=== PATIENT | male | born 1995 | race American Indian/Alaskan Native ===

== ENCOUNTER 2021-11-19 14:54 | Emergency (ER) | payer SELFPAY ==
[2021-11-19] MEDS ORDERED: IBUPROFEN 400 MG TAB PO ONE (15:42)
--- NOTE | 2021-11-19 15:47 | Emergency Department Report ---
ED General Adult HPI - General Chief complaint: Pain General Stated complaint: leg pain Time Seen by Provider: 11/19/21 15:33 Source: patient, EMS ( EMS documentation not available at time of chart dictation ) Mode of arrival: Ambulatory Limitations: No Limitations - History of Present Illness Initial comments: The patient was evaluated in the emergency department for symptoms described in the history of present illness. He/she was evaluated in the context of the global COVID-19 pandemic, which necessitated consideration that the patient might be at risk for infection with the virus that causes COVID-19. Institutional protocols and algorithms that pertain to the evaluation of patients at risk for COVID-19 are in a state of rapid change based on information released by regulatory bodies including the CDC and federal and state organizations. These policies and algorithms were followed during the patient's care in the emergency department. Please note that these policies, procedures and recommendations changed on a rapid basis. The patient is a 26-year-old gentleman presenting to the ER with a complaint of lower extremity cramping. He indicates that he is undomiciled. Earlier on this morning, he was sitting in the ER waiting room, although not as a patient. He was escorted off the premises, and subsequently called 911. The patient denies homicidality and suicidality. He denies access to guns or firearms. He denies hallucinations. He also denies wanting to overdose. He denies travel, surgery, immobilization, recent operative intervention, DVT/PE risk factors. He denies additional pain besides his bilateral lower extremities and cramping. Patient is also asking for "mental health evaluation", for his "anxiety." He also asks for resources for local psychiatric facilities Location: left, right, lower extremity Quality: aching Consistency: constant Improves with: movement, rest - Related Data Allergies Allergy/AdvReac Type Severity Reaction Status Date / Time No Known Allergies Allergy Verified 11/19/21 17:57 ED Review of Systems ROS: Stated complaint: ANKLE PAIN Other details as noted in HPI Constitutional: denies: fever Eyes: denies: eye discharge ENT: denies: epistaxis Respiratory: denies: cough Cardiovascular: denies: chest pain Gastrointestinal: denies: abdominal pain Musculoskeletal: arthralgia, myalgia Psychiatric: anxiety. denies: auditory hallucinations, visual hallucinations, homicidal thoughts, suicidal thoughts ED Physical Exam - General Limitations: No Limitations General appearance: alert, anxious - Head Head exam: Present: atraumatic, normocephalic - Eye Eye exam: Present: normal appearance, EOMI. Absent: nystagmus - ENT ENT exam: Present: normal exam, normal orophraynx, mucous membranes moist, normal external ear exam - Neck Neck exam: Present: normal inspection, full ROM. Absent: tenderness, meningismus - Respiratory Respiratory exam: Present: normal lung sounds bilaterally. Absent: respiratory distress, wheezes, rales, rhonchi, stridor, decreased breath sounds - Cardiovascular Cardiovascular Exam: Present: regular rate, normal rhythm, normal heart sounds. Absent: bradycardia, tachycardia, irregular rhythm, systolic murmur, diastolic murmur, rubs, gallop - GI/Abdominal GI/Abdominal exam: Present: soft. Absent: distended, tenderness, guarding, rebound, rigid, pulsatile mass - Rectal Rectal exam: Present: deferred - Extremities Exam Extremities exam: Present: normal inspection, full ROM (2+ pulses noted in the bilateral upper and lower extremities. There is no leg bony tenderness. The muscular compartments are soft. The pelvis is stable), pedal edema (There is 1+ edema in the bilateral lower extremities. There is no palpable cord. There is a negative Homans' sign. The muscular compartments are soft.), other (There is minimal gastrocnemius tenderness. There is no pain with passive range of motion of the great toe, ankle, or toes. The muscular compartments are soft) - Back Exam Back exam: Present: normal inspection, full ROM. Absent: tenderness, CVA tenderness (R), CVA tenderness (L), paraspinal tenderness, vertebral tenderness - Neurological Exam Neurological exam: Present: alert, oriented X3, normal gait, other (No facial droop. Tongue midline. Extraocular movements intact bilaterally. Facial sensation intact to light touch in V1, V2, V3 distribution bilaterally. 5 and a 5 strength in 4 extremities. Sensation intact to light touch in 4 extremities.). Absent: motor sensory deficit - Psychiatric Psychiatric exam: Present: anxious. Absent: homicidal ideation, suicidal ideation - Skin Skin exam: Present: warm, dry, intact, normal color. Absent: rash ED Course Vital Signs 11/19/21 11/19/21 15:26 17:54 Temperature 98.3 F Pulse Rate 94 Respiratory 18 Rate Blood Pressure 125/71 O2 Sat by Pulse 99 98 Oximetry - Reevaluation(s) Reevaluation #1: 11/19/21 16:17 The patient is now stating that he was suicidal. He is also asking when he can talk to someone about "demons." I suspect that this patient is malingering for the purposes of secondary gain, food, mcfp However, I will place him on a 1013, and order appropriate labs for psychiatric clearance. In addition, nursing team is instructed to take this patient to the decontamination room, and wash him off/decontaminate him before introduction to the psychiatric population 11/19/21 19:03 Laboratory studies unremarkable. Elevated CK reviewed and appreciated. This will decrease with rest and oral hydration. Muscular compartments are supple. Renal function within normal limits. TSH reviewed and appreciated. Free T4 added. Urinalysis and urine drug screen pending 11/19/21 21:02 Elevated TSH is reviewed and appreciated. Free T4 within normal limits. Urinalysis/urine drug screen/Covid swab pending. At this point in time, the patient does not appear to have an emergent medical contraindication at this time which would preclude psychiatric admission, ev aluation, consultation and placement. The ER will follow along as the patient provides a urine sample ED Medical Decision Making - Lab Data Result diagrams: 11/19/21 17:36 11/19/21 17:36 Vital Signs 11/19/21 15:26 Temperature 98.3 F Pulse Rate 94 Respiratory 18 Rate Blood Pressure 125/71 O2 Sat by Pulse 99 Oximetry Lab Results 11/19/21 11/19/21 11/19/21 Range/Units 17:36 17:36 17:36 WBC 9.0 (4.5-11.0) K/mm3 RBC 3.95 (3.65-5.03) M/mm3 Hgb 12.3 (11.8-15.2) gm/dl Hct 37.0 (35.5-45.6) % MCV 94 (84-94) fl MCH 31 (28-32) pg MCHC 33 (32-34) % RDW 13.6 (13.2-15.2) % Plt Count 219 (140-440) K/mm3 Sodium (137-145) mmol/L Potassium (3.6-5.0) mmol/L Chloride (98-107) mmol/L Carbon Dioxide (22-30) mmol/L Anion Gap mmol/L BUN (9-20) mg/dL Creatinine (0.8-1.3) mg/dL Estimated GFR ml/min BUN/Creatinine Ratio % Glucose (75-100) mg/dL Calcium (8.4-10.2) mg/dL Total Bilirubin (0.1-1.2) mg/dL AST (5-40) units/L ALT (7-56) units/L Alkaline Phosphatase (35-129) units/L Total Creatine Kinase (55-170) units/L Total Protein (6.3-8.2) g/dL Albumin (3.9-5) g/dL Albumin/Globulin Ratio % TSH (0.270-4.200) mlU/mL Salicylates < 0.3 L (2.8-20.0) mg/dL Acetaminophen 5.0 L (10.0-30.0) ug/mL Plasma/Serum Alcohol (0-0.07) % 11/19/21 11/19/21 11/19/21 Range/Units 17:36 17:36 17:36 WBC (4.5-11.0) K/mm3 RBC (3.65-5.03) M/mm3 Hgb (11.8-15.2) gm/dl Hct (35.5-45.6) % MCV (84-94) fl MCH (28-32) pg MCHC (32-34) % RDW (13.2-15.2) % Plt Count (140-440) K/mm3 Sodium 140 (137-145) mmol/L Potassium 3.7 (3.6-5.0) mmol/L Chloride 103.3 (98-107) mmol/L Carbon Dioxide 25 (22-30) mmol/L Anion Gap 15 mmol/L BUN 20 (9-20) mg/dL Creatinine 0.9 (0.8-1.3) mg/dL Estimated GFR 101 ml/min BUN/Creatinine Ratio 22 % Glucose 119 H (75-100) mg/dL Calcium 8.9 (8.4-10.2) mg/dL Total Bilirubin 0.60 (0.1-1.2) mg/dL AST 43 H (5-40) units/L ALT 37 (7-56) units/L Alkaline Phosphatase 68 (35-129) units/L Total Creatine Kinase 1719 H (55-170) units/L Total Protein 6.9 (6.3-8.2) g/dL Albumin 4.1 (3.9-5) g/dL Albumin/Globulin Ratio 1.5 % TSH 7.560 H (0.270-4.200) mlU/mL Salicylates (2.8-20.0) mg/dL Acetaminophen (10.0-30.0) ug/mL Plasma/Serum Alcohol < 0.01 (0-0.07) % - Medical Decision Making Differential diagnosis, including the not limited to: Encounter for behavioral health screening examination, encounter for mental health screening examination, encounter for medical screening examination, shinsplints, sprain, strain, overuse syndrome, homelessness Assessment and plan: 26-year-old gentleman who appears to be undomiciled, who is awake, alert, and oriented x3, who is clinically sober, who is not homicidal or suicidal, and who exhibits decision-making capacity, who does not meet criteria for 1013 hold or involuntary confinement, presenting with a number of nonemergent complaints. Patient may follow-up with an outpatient mental health professional or psychiatric facility for further evaluation of his anxiety which does not appear to be incapacitating at this time. Lower extremity swelling cramping likely secondary to shinsplints, excessive ambulation, with a possible component of mild malnutrition. He is not currently tachycardic, tachypneic or hypoxic, he denies DVT and pul monary embolism risk factors, he is low risk by Wells criteria for thromboembolic disease and he is PERC negative. He is neurovascularly intact with soft compartments, without pain with passive range of motion, therefore, compartment syndrome is very unlikely. Critical care attestation.: If time is entered above; I have spent that time in minutes in the direct care of this critically ill patient, excluding procedure time. ED Disposition Clinical Impression: Encounter for behavioral health screening, Encounter for medical screening examination, Lower extremity pain Disposition: [address] [place] [address] Is pt being admited?: No Does the pt Need Aspirin: No Condition: Good Additional Instructions: Patient may alternate ice packs and heat packs as needed for physical pain. He may take [id number] ibuprofen and/or acetaminophen as needed for physical pain. Recommend that patient obtain footwear that has good arch support. Patient may follow-up with an outpatient primary care doctor or mental health specialist within the next week. Please return to the emergency room right away with new pain, worsened pain, migration of pain, projectile vomiting, change in mental status, confusion, inability tolerate liquid feeds, new, worsened or different symptoms not present on the initial emergency room evaluation Please follow-up with outpatient resources that have been provided to the p atient Patient may present himself to [place] psychiatric facility if he would like to have an additional/expanded evaluation for his history of anxiety [facility] in [place], [place] COVID-19 info: cdc.gov Get online care: [email or web address] Address: [address] [place] [address] , [place] [address] [address]errals: [facility] [Outside] - 3-[address] [facility] [Outside] - 3-5 Days
[2021-11-19] MEDS: HALOPERIDOL LACTATE 5 MG/1 ML INJ IM PRN (17:15)
[2021-11-19] MEDS: LORazepam 2 MG/ML VIAL IM PRN (17:15)
[2021-11-19 17:49] LABS: Hemoglobin 12.3 gm/dl (11.8-15.2); Mean Corpuscular HGB Conc 33 % (32-34); Mean Corpuscular Volume 94 fl (84-94); Platelet Count 219 K/mm3 (140-440); Red Blood Count 3.95 M/mm3 (3.65-5.03); Red Cell Distribution Width 13.6 % (13.2-15.2)
[2021-11-19 18:17] LABS: Albumin 4.1 g/dL (3.9-5); Calcium 8.9 mg/dL (8.4-10.2)
[2021-11-20] MEDS: LORazepam 2 MG/ML VIAL IM PRN ×2 (09:04→09:05)
[2021-11-20] MEDS: HALOPERIDOL LACTATE 5 MG/1 ML INJ IM PRN (09:05)
--- NOTE | 2021-11-20 09:07 | Progress Note ---
Subjective - Reason for Consult Consult date: 11/20/21 Reason for consult: SI - Chief Complaint Chief complaint: The patient was seen today. He is a 26y/o male who presents to the ER for leg cramps. During the evaluation he is avoidant. It is difficult to obtain any information from him. I attempted once and he would barely talk. I later came back after speaking with another patient. I have to ask him questions several times. His answers are vague. Some questions he would not answer. He is irritable. I ask him his name, he doesn't reference it but spells it out to me. He endorses suicidal thoughts with no plan. When asking the patient why was he suicidal, he replies "I don't know." He denies any past psych history or ever being on any medications. I ask the patient if he have family or any social support. He replies "yes." When asking who were they, he just sits up and rakes his hair back constantly. He says he lives alone. He denies any illicit drug use, alcohol or nicotine. PAST PSYCHIATRIC HISTORY: Diagnoses: Denies Suicide attempts or Self-harm behavior: Denies Prior psychiatric hospitalizations: Denies Substance Abuse history: Denies Previous psychiatric medications tried: Denies Outpatient treatment: Denies PAST MEDICAL HISTORY: None reported Family Psychiatric History: None reported or documented SOCIAL HISTORY Marital Status: would not answer Living Arrangements: states alone Employment Status: would not answer Access to guns/weapons: Denies Education: History of Abuse: Denies Legal History: Denies REVIEW OF SYSTEMS Constitutional: Negative for weight loss ENT: Negative for stridor Respiratory: Negative for cough or hemoptysis All other systems reviewed and are negative MENTAL STATUS EXAMINATION Unable to assess adequately Assessment (1) Major Depressive Disorder Treatment Plan 1013 Olanzapine 5mg po daily Trazodone 50mg po qhs Medical: Per primary Disposition: Recommend acute psychiatric inpatient treatment Will follow. Thanks Case staffed with Dr. Greene Mental Status Exam - Vital signs Last Vital Signs Temp 98.1 F 11/19/21 22:26 Pulse 90 11/19/21 22:26 Resp 18 11/19/21 22:26 BP 120/60 11/19/21 22:26 Pulse Ox 98 11/19/21 22:26
--- NOTE | 2021-11-20 16:27 | Event Note ---
Date: 11/20/21 No overnight issues. Vital signs stable. Labs reviewed and is unremarkable. Patient has been evaluated by psychiatric team and waiting for inpatient psychiatric admission.
[2021-11-20 17:21] LABS: Amphetamine Screen,Urine Negative; Benzodiazepines Screen,Urine Negative; Cannabinoid Screen,Urine Negative; Cocaine Screen,Urine Negative; Methadone Screen,Urine Negative; Opiate Screen,Urine Negative
[2021-11-20 17:24] LABS: Mucus,Urine FEW /HPF; WBC,Urine < 1.0 /HPF (0.0-6.0)
[2021-11-20 18:02] LABS: Bilirubin,Urine Negative (Negative); Blood,Urine Negative (Negative); Color,Urine Yellow (Yellow); Protein,Urine <15 mg/dL mg/dL (Negative)
[2021-11-20] MEDS ORDERED: traZODone 50 MG TAB PO SCH (22:00)
--- NOTE | 2021-11-21 12:04 | Progress Note ---
Subjective - Reason for Consult Consult date: 11/21/21 Reason for consult: SI - Chief Complaint Chief complaint: The patient was seen today. He is more talkative than yesterday. The patient verbalizes feeling "fine today." He says he slept good and his appetite is good. The patient is asking for a "pain pill for his legs." He denies SI/HI or hallucinations of any kind. Asked the patient why he refused his vital signs to be taken, he replies "I've been taking the meds but I don't need the vitals checked." He says "anyway, I feel fine today." The patient is asking for coffee and to use the phone. REVIEW OF SYSTEMS Constitutional: Negative for weight loss ENT: Negative for stridor Respiratory: Negative for cough or hemoptysis All other systems reviewed and are negative MENTAL STATUS EXAMINATION General Appearance and Behavior: Age appropriate, good hygiene, wearing appropriate clothes. calm, cooperative Cooperation: Cooperative Psychomotor Behavior: Psychomotor normal Mood: fine Affect and affective range: congruent with stated mood Thought Process: goal directed Thought Content: None Speech: Normal tone and pace Suicidal Ideation: Denies Homicidal Ideation: Denies Hallucinations: Denies Delusions: None elicited Impulse Control: Limited Insight and Judgment: limited insight and fair judgment Memory: Limited Attention: attentive Orientation: a/o x 3 Assessment (1) Major Depressive Disorder Treatment Plan d/c 1013 Olanzapine 5mg po daily Trazodone 50mg po qhs Medical: Per primary Disposition: Do not recommend acute psychiatric inpatient treatment. The patient understands that if SI/HI or any fear of endangerment are to arise he is to seek immediate assistance. The private duty aide to give the patient all necessary resources, and further discuss safety plan. The patient to follow up with outpatient psych in 7 to 14 days upon discharge from ER Will sign off. Thanks Case staffed with Dr. Greene Mental Status Exam - Vital signs Last Vital Signs Temp 98.1 F 11/19/21 22:26 Pulse 85 11/20/21 11:11 Resp 14 11/20/21 11:11 BP 106/60 11/20/21 11:11 Pulse Ox 99 11/20/21 11:11
--- NOTE | 2021-11-21 13:52 | Emergency Department Report ---
Blank Doc - Documentation Documentation: 26-year-old male evaluated by mental health with recommendation to discontinue 1013. patient be discharged with meds as prescribed by psych. Patient refused vital signs
[2021-11-21 15:49] VITALS: BP 120/87
== END 2021-11-21 15:51 | disposition home or self-care (01) ==
LOC: ED 14:54 → EDSEX 14:54 → ED 11-21 15:51
DX: M79.604 Pain in right leg (principal); M79.605 Pain in left leg; Z13.30 Encounter for screening examination for mental health and behavioral disorders, unspecified; Z20.822 Contact with and (suspected) exposure to COVID-19; Z79.899 Other long term (current) drug therapy
CPT/HCPCS: 36415; 80053; 80307; 81001; 82550; 84439; 84443; 85027; 96372; 99285; J1630; J2060; U0003; 80320; G0480

== ENCOUNTER 2021-11-22 02:51 | Emergency (ER) | payer SELFPAY ==
[2021-11-22] MEDS ORDERED: diphenhydrAMINE 25 MG CAP PO ONE (05:23)
--- NOTE | 2021-11-22 05:30 | Emergency Department Report ---
HPI - General Chief Complaint: Psych Time Seen by Provider: 11/22/21 04:11 - [facility] HPI: Room 12 The patient is a 26-year-old male present with a chief complaint of suicidal ideation. Patient states he is felt suicidal for "a while." Patient also admits to auditory hallucinations. When asked what the voices are saying the patient replies "nothing really important." Patient denies making any attempts at harming himself or having an active plan. ED Past Medical Hx - Past Medical History Hx Psychiatric Treatment: Yes (Anxiety) - Surgical History Past Surgical History?: No - Family History Family history: no significant - Social History Smoking Status: Never Smoker Substance Use Type: None (Denies illicit drug use) - Medications Home Medications: Home Medications Medication Instructions Recorded Confirmed Last Taken Type OLANZapine [Olanzapine] 5 mg PO DAILY #30 11/21/21 Unknown Rx traZODone [Desyrel] 50 mg PO QHS #30 tab 11/21/21 Unknown Rx ED Review of Systems ROS: Stated complaint: MH Other details as noted in HPI Constitutional: no symptoms reported Eyes: denies: eye pain ENT: denies: throat pain Respiratory: no symptoms reported Cardiovascular: denies: chest pain Endocrine: no symptoms reported Gastrointestinal: denies: abdominal pain Genitourinary: denies: dysuria Musculoskeletal: denies: back pain Skin: rash, pruritus Neurological: denies: headache Psychiatric: auditory hallucinations, suicidal thoughts Physical Exam - Physical Exam Vital Signs: Vital Signs 11/22/21 03:06 Temperature 98.4 F Pulse Rate 82 Respiratory 16 Rate Blood Pressure 138/80 O2 Sat by Pulse 99 Oximetry Physical Exam: GENERAL: The patient is well-developed well-nourished male lying on stretcher not appearing to be in acute distress. [] HEENT: Normocephalic. Atraumatic. Extraocular motions are intact. Patient has moist mucous membranes. NECK: Supple. Trachea midline CHEST/LUNGS: Clear to auscultation. There is no respiratory distress noted. HEART/CARDIOVASCULAR: Regular. There is no tachycardia. There is no gallop rub or murmur. ABDOMEN: Abdomen is soft, nontender. Patient has normal bowel sounds. There is no abdominal distention. SKIN: There is no diaphoresis. NEURO: The patient is awake, alert, and oriented. The patient is cooperative. The patient has no focal neurologic deficits. The patient has normal speech MUSCULOSKELETAL: There is no evidence of acute injury. ED Course Vital Signs 11/22/21 03:06 Temperature 98.4 F Pulse Rate 82 Respiratory 16 Rate Blood Pressure 138/80 O2 Sat by Pulse 99 Oximetry ED Medical Decision Making - Lab Data Result diagrams: 11/22/21 06:10 11/22/21 06:10 - Differential Diagnosis Suicidal ideation Critical care attestation.: If time is entered above; I have spent that time in minutes in the direct care of this critically ill patient, excluding procedure time. ED Disposition Clinical Impression: Encounter for behavioral health screening, Encounter for medical screening examination Disposition: HOME / SELF CARE / HOMELESS Is pt being admited?: No Does the pt Need Aspirin: No Condition: Good Additional Instructions: Please follow-up with the outpatient resources that have been provided to the patient. Please avoid consumption of tobacco, alcohol, drugs and smoke products. Please follow-up with an outpatient primary care provider within the next month. Please follow-up with an outpatient psychiatrist within the next week. Please return to the emergency room right away with new pain, worsened pain, migration of pain, projectile vomiting, change in mental status, confusion, inability tolerate liquid feeds, new, worsened or different symptoms not present on the initial emergency room evaluation Referrals: [facility] [Outside] - 3-5 Days [facility] [Outside] - 3-5 Days
[2021-11-22 06:25] LABS: Hematocrit 35.7 % (35.5-45.6); Mean Corpuscular HGB Conc 34 % (32-34); Mean Corpuscular Volume 95 fl (84-94); Platelet Count 237 K/mm3 (140-440); Red Blood Count 3.77 M/mm3 (3.65-5.03); Red Cell Distribution Width 13.5 % (13.2-15.2)
[2021-11-22 06:36] LABS: Basophils % (Auto) 0.4 % (0.0-1.8); Eosinophils # (Auto) 0.1 K/mm3 (0.0-0.4); Eosinophils % (Auto) 2.4 % (0.0-4.3); Lymphocytes # (Auto) 0.7 K/mm3 (1.2-5.4); Lymphocytes % (Auto) 16.7 % (13.4-35.0); Monocytes # (Auto) 0.4 K/mm3 (0.0-0.8); Monocytes % (Auto) 9.2 % (0.0-7.3)
[2021-11-22 06:53] LABS: Alanine Aminotransferase 23 units/L (7-56); Albumin 3.8 g/dL (3.9-5); BUN/Creatinine Ratio 19; Blood Urea Nitrogen 17 mg/dL (9-20); Calcium 8.4 mg/dL (8.4-10.2); Hemolysis Index 8
--- NOTE | 2021-11-22 07:09 | Event Note ---
Date: 11/22/21 Patient is seen and examined. He is cooperative and resting on the chair and in no acute distress. The patient was cleared by the psychiatry team yesterday, and discharged from the emergency room. The care team endorses that he is cooperative, and not belligerent or combative. I again suspect that this patient is presenting for the purposes of malingering, housing, mcc and secondary gain. Please send this patient on a hold/1013 will reinforce maladaptive behavior, and encouraged the patient to present to the emergency room to seek mcc and food when faced with difficult situations. At this point time, he does not appear to have an immediate medical contraindication to psychiatric admission, evaluation, consultation and john cement. We are awaiting mental health evaluation. Vital Signs 11/22/21 03:06 Temperature 98.4 F Pulse Rate 82 Respiratory 16 Rate Blood Pressure 138/80 O2 Sat by Pulse 99 Oximetry Lab Results 11/22/21 11/22/21 11/22/21 Range/Units 06:10 06:10 06:10 WBC 4.2 L (4.5-11.0) K/mm3 RBC 3.77 (3.65-5.03) M/mm3 Hgb 12.0 (11.8-15.2) gm/dl Hct 35.7 (35.5-45.6) % MCV 95 H (84-94) fl MCH 32 (28-32) pg MCHC 34 (32-34) % RDW 13.5 (13.2-15.2) % Plt Count 237 (140-440) K/mm3 Lymph % (Auto) 16.7 (13.4-35.0) % [place] % (Auto) 9.2 H (0.0-7.3) % Eos % (Auto) 2.4 (0.0-4.3) % Baso % (Auto) 0.4 (0.0-1.8) % Lymph # (Auto) 0.7 L (1.2-5.4) K/mm3 [place] # (Auto) 0.4 (0.0-0.8) K/mm3 Eos # (Auto) 0.1 (0.0-0.4) K/mm3 Baso # (Auto) 0.0 (0.0-0.1) K/mm3 Seg Neutrophils % 71.3 H (40.0-70.0) % Seg Neutrophils # 3.1 (1.8-7.7) K/mm3 Sodium 148 H D (137-145) mmol/L Potassium 3.6 (3.6-5.0) mmol/L Chloride 111.4 H (98-107) mmol/L Carbon Dioxide 26 (22-30) mmol/L Anion Gap 14 mmol/L BUN 17 (9-20) mg/dL Creatinine 0.9 (0.8-1.3) mg/dL Estimated GFR > 60 ml/min BUN/Creatinine Ratio 19 % Glucose 120 H (75-100) mg/dL Calcium 8.4 (8.4-10.2) mg/dL Total Bilirubin 0.20 (0.1-1.2) mg/dL AST 33 (5-40) units/L ALT 23 (7-56) units/L Alkaline Phosphatase 70 (35-129) units/L Total Protein 6.5 (6.3-8.2) g/dL Albumin 3.8 L (3.9-5) g/dL Albumin/Globulin Ratio 1.4 % Salicylates < 0.3 L (2.8-20.0) mg/dL Acetaminophen (10.0-30.0) ug/mL 11/22/21 Range/Units 06:10 WBC (4.5-11.0) K/mm3 RBC (3.65-5.03) M/mm3 Hgb (11.8-15.2) gm/dl Hct (35.5-45.6) % MCV (84-94) fl MCH (28-32) pg MCHC (32-34) % RDW (13.2-15.2) % Plt Count (140-440) K/mm3 Lymph % (Auto) (13.4-35.0) % [place] % (Auto) (0.0-7.3) % Eos % (Auto) (0.0-4.3) % Baso % (Auto) (0.0-1.8) % Lymph # (Auto) (1.2-5.4) K/mm3 [place] # (Auto) (0.0-0.8) K/mm3 Eos # (Auto) (0.0-0.4) K/mm3 Baso # (Auto) (0.0-0.1) K/mm3 Seg Neutrophils % (40.0-70.0) % Seg Neutrophils # (1.8-7.7) K/mm3 Sodium (137-145) mmol/L Potassium (3.6-5.0) mmol/L Chloride (98-107) mmol/L Carbon Dioxide (22-30) mmol/L Anion Gap mmol/L BUN (9-20) mg/dL Creatinine (0.8-1.3) mg/dL Estimated GFR ml/min BUN/Creatinine Ratio % Glucose (75-100) mg/dL Calcium (8.4-10.2) mg/dL Total Bilirubin (0.1-1.2) mg/dL AST (5-40) units/L ALT (7-56) units/L Alkaline Phosphatase (35-129) units/L Total Protein (6.3-8.2) g/dL Albumin (3.9-5) g/dL Albumin/Globulin Ratio % Salicylates (2.8-20.0) mg/dL Acetaminophen 5.0 L (10.0-30.0) ug/mL 12: 09; 11/22/2021 Patient has remained calm and cooperative. The psychiatric team have recommended discharge. He will be discharged.
[2021-11-22 10:06] VITALS: BP 113/74
--- NOTE | 2021-11-22 11:41 | Progress Note ---
Subjective - Reason for Consult Consult date: 11/22/21 Reason for consult: SI, anxiety - Chief Complaint Chief complaint: The patient was seen today. He was just cleared and discharged from ER yesterday. He's vague in his responses. He is not forthcoming with some of the questions. The patient says "I'm fine. I'm just getting out of the shower," when asking how he felt. I asked the patient why did he return to the ER, he says "I never left. I'm very anxious. I'm dealing with mental things." I ask the patient why didn't he fill his scripts and follow up with outpatient, he replies "I'm just very anxious." The patient then says "I'm also dehydrated, and my anxiety is really bad." He denies hallucinations of any kind. When asking the patient was he suicidal, he says "yes, I think I am. I'm not feeling good, my legs, dehydration and my mental stated. I need inpatient." The patient initially told me he had family support the other day. He now says he doesn't have family support. Nursing staff states the patient has not exhibited any signs of psychosis, agitation or aggressive behavior. Says the patient has been calm, and cooperative. REVIEW OF SYSTEMS Constitutional: Negative for weight loss ENT: Negative for stridor Respiratory: Negative for cough or hemoptysis All other systems reviewed and are negative MENTAL STATUS EXAMINATION General Appearance and Behavior: Age appropriate, good hygiene, wearing appropriate clothes. calm, cooperative Cooperation: Cooperative Psychomotor Behavior: Psychomotor normal Mood: "fine, anxious" Affect and affective range: congruent with stated mood Thought Process: goal directed Thought Content: None Speech: Normal tone and pace Suicidal Ideation: Denies Homicidal Ideation: Denies Hallucinations: Denies Delusions: None elicited Impulse Control: Limited Insight and Judgment: limited insight and fair judgment Memory: Limited Attention: attentive Orientation: a/o x 3 Assessment (1) Generalized Anxiety Disorder Treatment Plan Continue meds previously prescribed. Medical: Per primary Disposition: Do not recommend acute psychiatric inpatient treatment. The patient understands that if SI/HI or any fear of endangerment are to arise he is to seek immediate assistance. The sales marketing director to give the patient all necessary resources, and further discuss safety plan. The patient to follow up with outpatient psych in 7 to 14 days upon discharge from ER Will sign off. Thanks Case staffed with Dr. Greene Mental Status Exam - Vital signs Last Vital Signs Temp 96.7 F L 11/22/21 10:04 Pulse 104 H 11/22/21 10:04 Resp 18 11/22/21 10:04 BP 113/74 11/22/21 10:04 Pulse Ox 99 11/22/21 10:04
== END 2021-11-22 12:55 | disposition home or self-care (01) ==
LOC: ED 02:51
DX: Z13.30 Encounter for screening examination for mental health and behavioral disorders, unspecified (principal); R45.851 Suicidal ideations; F41.9 Anxiety disorder, unspecified; Z79.899 Other long term (current) drug therapy
CPT/HCPCS: 36415; 80053; 80320; 85025; 99284; G0480